=== PATIENT | female | born 1960 | race Caucasian/White ===

== ENCOUNTER 2019-08-21 19:27 | Observation (INO) | payer OTHER ==
[~2019-08-21] VITALS: Ht 165.1 cm; Wt 102.1 kg
[~2019-08-21 19:27] MED LIST: ASPI81EC PO; ATOR10 PO; Hair, Skin & N1 EACH PO; TURMERIC500 M2; Vitamin D2000 UNIT PO; ZOLP5 PO
[2019-08-21] MEDS ORDERED: DILTIAZEM 24HR120 M2 PO (19:36)
[2019-08-21 20:03] LABS: BASOPHILS ABSOLUTE AUTO 0.06 K/mm3 (0.00-0.23); BASOPHILS PERCENT AUTO 1 % (0-2); EOSINOPHILS ABSOLUTE AUTO 0.26 K/mm3 (0.00-0.68); EOSINOPHILS PERCENT AUTO 5 % (0-6); Hematocrit 36.9 % (33.0-51.0); Hemoglobin 12.3 g/dL (11.5-16.0); IMMATURE GRAN ABSOLUTE AUTO 0.01 K/mm3 (0.00-0.10); IMMATURE GRAN PERCENT AUTO 0 % (0-1); LYMPHOCYTES ABSOLUTE AUTO 2.57 K/mm3 (0.84-5.20); LYMPHOCYTES PERCENT AUTO 49 % (21-46); MONOCYTES ABSOLUTE AUTO 0.35 K/mm3 (0.16-1.47); MONOCYTES PERCENT AUTO 7 % (4-13); Mean Corpuscular HGB Conc 33.3 g/dL (31.5-36.5); Mean Corpuscular Volume 96 fL (80-100); Mean Platelet Volume 10.6 fL (9.1-12.4); NEUTROPHILS ABSOLUTE AUTO 1.98 K/mm3 (1.96-9.15); NEUTROPHILS PERCENT AUTO 38 % (41-73); Platelet Count 242 K/mm3 (150-400); RDW Coefficient Variation 12.4 % (11.7-14.2); RDW Standard Deviation 43.7 fL (35.1-46.3); Red Blood Cell Count 3.84 M/mm3 (3.80-5.20); White Blood Cell Count 5.23 K/mm3 (4.00-11.30)
[2019-08-21 20:25] LABS: Alanine Aminotransfer (ALT/SGP 31 U/L (12-78); Albumin, Blood 3.4 g/dL (3.4-5.0); Albumin/Globulin Ratio 0.9 (0.8-1.8); Alk Phos 120 U/L (50-136); Anion Gap 7 mmol/L (6-16); Aspartate Aminotrans (AST/SGOT 24 U/L (12-37); Bilirubin, Total 0.5 mg/dL (0.1-1.0); Blood Urea Nitrogen 24 mg/dL (8-24); CO2, Blood 27 mmol/L (21-32); Calcium, Blood 8.5 mg/dL (8.5-10.1); Chloride, Blood 105 mmol/L (98-108); Creatinine, Blood 0.92 mg/dL (0.40-1.00); Globulin, Blood 3.6 g/dL (2.2-4.0); Glomerular Filtration Rate >60 (60-); Glucose, Blood 101 mg/dL (70-99); Potassium, Blood 4.2 mmol/L (3.5-5.5); Sodium, Blood 139 mmol/L (136-145); Troponin I <0.015 ng/mL (0.000-0.040)
[2019-08-22 04:37] LABS: BASOPHILS ABSOLUTE AUTO 0.05 K/mm3 (0.00-0.23); BASOPHILS PERCENT AUTO 1 % (0-2); EOSINOPHILS PERCENT AUTO 2 % (0-6); Hematocrit 38.5 % (33.0-51.0); Hemoglobin 12.4 g/dL (11.5-16.0); IMMATURE GRAN ABSOLUTE AUTO 0.02 K/mm3 (0.00-0.10); IMMATURE GRAN PERCENT AUTO 0 % (0-1); LYMPHOCYTES ABSOLUTE AUTO 1.43 K/mm3 (0.84-5.20); LYMPHOCYTES PERCENT AUTO 27 % (21-46); MONOCYTES ABSOLUTE AUTO 0.15 K/mm3 (0.16-1.47); MONOCYTES PERCENT AUTO 3 % (4-13); Mean Corpuscular HGB 30.3 pg (26.0-34.0); Mean Corpuscular HGB Conc 32.2 g/dL (31.5-36.5); Mean Corpuscular Volume 94 fL (80-100); Mean Platelet Volume 10.4 fL (9.1-12.4); NEUTROPHILS PERCENT AUTO 67 % (41-73); Platelet Count 238 K/mm3 (150-400); RDW Coefficient Variation 12.3 % (11.7-14.2); RDW Standard Deviation 42.5 fL (35.1-46.3); Red Blood Cell Count 4.09 M/mm3 (3.80-5.20); White Blood Cell Count 5.25 K/mm3 (4.00-11.30)
[2019-08-22 05:00] LABS: Anion Gap 8 mmol/L (6-16); Blood Urea Nitrogen 18 mg/dL (8-24); Bun/Creatinine Ratio 16.5 (12.0-20.0); CO2, Blood 27 mmol/L (21-32); Calcium, Blood 8.6 mg/dL (8.5-10.1); Chloride, Blood 104 mmol/L (98-108); Creatinine, Blood 1.09 mg/dL (0.40-1.00); Glomerular Filtration Rate 54 (60-); Glucose, Blood 142 mg/dL (70-99); Potassium, Blood 4.1 mmol/L (3.5-5.5); Sodium, Blood 139 mmol/L (136-145); Troponin I <0.015 ng/mL (0.000-0.040)
--- NOTE | 2019-08-22 07:21 | NUR ---
ASSUMED CARE REPORT FROM ANIKET BECK
--- NOTE | 2019-08-22 07:53 | NUR ---
SHIFT SUMMARY PT IS A&O X4, VSS, ON RA, SHE DENIES CP/SOB SINCE ADMISSION TO THE FLOOR. PT WAS TAKEN TO CT FOR THE PE STUDY. SENIOR PAYROLL SPECIALIST IN THIS AM TO COMPLETE ECHO, PT IS VOIDING OFTEN DUE TO LASIX GIVEN IN ER. PT'S DAUGHTER IS GOING TO BRING IN HOME CPAP PER PT REQUEST. PT IS RESTING QUIETLY IN HER BED, CALL LIGHT IN REACH, REPORT GIVEN TO DAY RN.
--- NOTE | 2019-08-22 08:19 | NUR ---
DENIES CHEST PAIN. A&O, UP AD DEMARIO IN ROOM. VS STABLE.
--- NOTE | 2019-08-22 08:23 | NUR ---
ECHOCARDIOGRAM COMPLETED
--- NOTE | 2019-08-22 09:11 | NUR ---
MD VISIT DR. BYRNE IN
--- NOTE | 2019-08-22 17:08 | NUR ---
HR SLOWED WHEN PATIENT TRIED TO HAVE BM (40'S). PATIENT DIDN'T NOTICE (LIBRARY MANAGER ADVISED).
--- NOTE | 2019-08-22 19:18 | NUR ---
REPORT GIVEN TO ANIKET LANZA
--- NOTE | 2019-08-22 19:25 | NUR ---
DAUGHTER VISITING. REPORT TO ANIKET LANZA
--- NOTE | 2019-08-23 05:18 | NUR ---
SHIFT SUMMARY HAS RESTED WELL THIS SHIFT. PT VOICED CONCERN ABOUT BRADYCARDIA 30'S TO 50'S. ALSO STATED THAT SHE HAS A SORE THROAT AND A BURNING SENSATION IN HER MOUTH IF SHE HAS EATEN A PIZZA THAT IS TOO HOT. SHE STATES THAT THESE ADVERSE REACTIONS STARTED AFTER SHE BEGAN TAKING CARDIZEM ER. DENIES OBSERVANCE OF ANY OTHER ADVERSE REACTIONS. MARQUES HOSE PLACED PER PT REQUEST DUE TO MILD TO MODERATE EDEMA TO BLE. DENIES FURTHER NEEDS OR WANTS AT THIS TIME. SAFETY MEASURES IN PLACE. WILL GIVE HAND OFF TO ONCOMING SHIFT USING SBAR DURING BEDSIDE REPORT.
[2019-08-23] MEDS ORDERED: METO25 PO (08:51)
--- NOTE | 2019-08-23 10:04 | NUR ---
DISCHARGE SUMMARY PT REMAINED ALERT & ORIENTED. VSS, SB 40-60S ON TELE MONITOR; MD AWARE. PT DENIED ANY C/O CHEST PAIN/PRESSURE, SOB, PALPITATIONS, OR DIZZINESS/LIGHTHEADEDNESS. DISCHARGE EDUCATION COMPLETED W/ PT. DISCUSSED MED REC & FOLLOW UP INSTRUCTIONS; PT VERBALIZED UNDERSTANDING & STATED SHE WOULD FOLLOW UP INSTRUCTED & TAKE MEDS PRESCRIBED. DISCUSSED TO SEEK MEDICAL ATTENTION IF SHE EXPERIENCES CHEST PAIN/PRESSURE, SOB, WEIGHT GAIN, SWELLING, DIZZINESS, OR PALPITATIONS; PT VERBALIZED UNDERSTANDING. IV & TELE REMOVED. PT TO PICKUP NEW RX AT [facility] IN [place]. ALL PAPERWORK & BELONGINGS GIVEN TO PT. PT DISCHARGED HOME; DECLINED WHEELCHAIR; AMBUALTED OFF UNIT IN STABLE CONDITION.
== END 2019-08-23 10:05 | disposition home or self-care (01) ==
LOC: ER 19:27 → ERHOLD 19:28 → PCU 08-22 03:00
PROVIDERS: Emergency Medicine; Nurse Practitioner Acute Care; ADMIT Internal Medicine
DX: R07.89 Other chest pain (principal); R60.0 Localized edema; I10 Essential (primary) hypertension; I48.0 Paroxysmal atrial fibrillation; E78.5 Hyperlipidemia, unspecified; E66.9 Obesity, unspecified; Z91.09 Other allergy status, other than to drugs and biological substances; Z88.1 Allergy status to other antibiotic agents; Z88.6 Allergy status to analgesic agent; Z79.899 Other long term (current) drug therapy; Z68.37 Body mass index [BMI] 37.0-37.9, adult
CPT/HCPCS: 36415; 36416; 71046; 71260; 80048; 80053; 83880; 84443; 84484; 85025; 93005; 93010; 93306; 96361; 96372; 96374; 96375; 96376; 99285-25; A9270-GY; G0378; J1200; J1644; J1720; J1940; J2405; J7030; Q9967

== ENCOUNTER 2019-08-25 09:31 | Emergency (ER) | payer OTHER ==
[~2019-08-25] VITALS: Ht 162.6 cm; Wt 98.9 kg
[~2019-08-25 09:31] MED LIST changes: +DILTIAZEM 24HR120 M2 PO; +METO25 PO
[2019-08-25 10:32] LABS: Alanine Aminotransfer (ALT/SGP 53 U/L (12-78); Albumin, Blood 3.5 g/dL (3.4-5.0); Albumin/Globulin Ratio 0.9 (0.8-1.8); Alk Phos 115 U/L (50-136); Anion Gap 5 mmol/L (6-16); Aspartate Aminotrans (AST/SGOT 38 U/L (12-37); Bilirubin, Total 0.7 mg/dL (0.1-1.0); Blood Urea Nitrogen 25 mg/dL (8-24); Bun/Creatinine Ratio 28.5 (12.0-20.0); CO2, Blood 25 mmol/L (21-32); Calcium, Blood 8.9 mg/dL (8.5-10.1); Chloride, Blood 106 mmol/L (98-108); Creatinine, Blood 0.88 mg/dL (0.40-1.00); Globulin, Blood 3.8 g/dL (2.2-4.0); Glomerular Filtration Rate >60 (60-); Glucose, Blood 97 mg/dL (70-99); Potassium, Blood 4.6 mmol/L (3.5-5.5); Sodium, Blood 136 mmol/L (136-145); Total Protein, Blood 7.3 g/dL (6.4-8.2); Troponin I <0.015 ng/mL (0.000-0.040)
[2019-08-25 10:34] LABS: BASOPHILS ABSOLUTE AUTO 0.03 K/mm3 (0.00-0.23); BASOPHILS PERCENT AUTO 1 % (0-2); EOSINOPHILS ABSOLUTE AUTO 0.17 K/mm3 (0.00-0.68); EOSINOPHILS PERCENT AUTO 3 % (0-6); Hematocrit 37.9 % (33.0-51.0); Hemoglobin 12.4 g/dL (11.5-16.0); IMMATURE GRAN ABSOLUTE AUTO 0.03 K/mm3 (0.00-0.10); IMMATURE GRAN PERCENT AUTO 1 % (0-1); LYMPHOCYTES ABSOLUTE AUTO 2.23 K/mm3 (0.84-5.20); LYMPHOCYTES PERCENT AUTO 40 % (21-46); MONOCYTES ABSOLUTE AUTO 0.38 K/mm3 (0.16-1.47); MONOCYTES PERCENT AUTO 7 % (4-13); Mean Corpuscular HGB Conc 32.7 g/dL (31.5-36.5); Mean Corpuscular Volume 95 fL (80-100); Mean Platelet Volume 10.5 fL (9.1-12.4); NEUTROPHILS ABSOLUTE AUTO 2.71 K/mm3 (1.96-9.15); NEUTROPHILS PERCENT AUTO 49 % (41-73); Platelet Count 218 K/mm3 (150-400); RDW Coefficient Variation 12.3 % (11.7-14.2); White Blood Cell Count 5.55 K/mm3 (4.00-11.30)
== END 2019-08-25 14:30 | disposition home or self-care (01) ==
LOC: ER 09:31
PROVIDERS: Emergency Medicine
DX: R07.89 Other chest pain (principal); I10 Essential (primary) hypertension; R00.1 Bradycardia, unspecified; I48.91 Unspecified atrial fibrillation; Z88.1 Allergy status to other antibiotic agents; Z88.5 Allergy status to narcotic agent; Z91.013 Allergy to seafood; Z88.6 Allergy status to analgesic agent
CPT/HCPCS: 36415; 80053; 84484; 85025; 93005; 93010; 96374; 99285-25; A9270-GY; C9113

== ENCOUNTER 2020-03-27 07:21 | Day surgery (SDC) | payer OTHER ==
[~2020-03-27] VITALS: Ht 162.6 cm; Wt 99.1 kg
[~2020-03-27 07:21] MED LIST changes: +ACYC200 PO; +ASPIR 8181 M1 PO; +ATOR20 PO; +COLCHICINE0.6 MG PO; +EPIPEN0.3 MG/0.1 IM; +FURO20 PO; +LEVSOD25 PO; +Lisinopril-Hct1 EAC4 PO
[2020-03-27] MEDS ORDERED: AMLO5 PO (08:00)
[2020-03-27] MEDS ORDERED: Isosorbide Mono30 MG PO (12:13)
--- NOTE | 2020-03-27 12:15 | NUR ---
DR. RASHID AT BEDSIDE SPEAKING WITH PT AND PT'S DAUGHTER ABOUT RESULTS OF PROCEDURE.
--- NOTE | 2020-03-27 14:36 | NUR ---
DISCHARGE PATIENT REMAINED A&OX3 AND DENIED ANY PAIN DURING RECOVERY. NEW MEDICATION CALLED INTO [facility]. IV DC'D WITH CANULA IN TACT. PT ABLE TO DRESS SELF WITH LITTLE ASSISTACE FROM SISTER. PT UP TO RESTROOM WITH STEADY GAIT. RIGHT RADIAL SITE-TR BAND REMOVED-CLOTH DOT AND WHITE BOARD IN PLACE-CDI, NO HEMATOMA NOTED. DISCHARGE PAPERWORK GONE OVER WITH PATIENT. PATIENT VERBALLY STATED THE UNDERSTANDING OF THE DISCHARGE EDUCATION AND DENIED ANY QUESTIONS AT THIS TIME. PT WHEELED OUT BY THIS NURSE.
== END 2020-03-27 14:58 | disposition home or self-care (01) ==
LOC: MHTC 07:21
PROC: B2111ZZ Fluoroscopy of Multiple Coronary Arteries using Low Osmolar Contrast (ICD-10-PCS; principal; 2020-03-27)
PROC: 4A023N7 Measurement of Cardiac Sampling and Pressure, Left Heart, Percutaneous Approach (ICD-10-PCS; principal; 2020-03-27)
DX: R07.9 Chest pain, unspecified (principal); I25.10 Atherosclerotic heart disease of native coronary artery without angina pectoris; R00.1 Bradycardia, unspecified; R06.00 Dyspnea, unspecified; I47.1 Supraventricular tachycardia; I10 Essential (primary) hypertension; I51.9 Heart disease, unspecified; G47.33 Obstructive sleep apnea (adult) (pediatric); I48.0 Paroxysmal atrial fibrillation; E66.9 Obesity, unspecified; Z68.37 Body mass index [BMI] 37.0-37.9, adult; Z99.89 Dependence on other enabling machines and devices; Z88.6 Allergy status to analgesic agent; Z88.8 Allergy status to other drugs, medicaments and biological substances; Z91.041 Radiographic dye allergy status; Z91.018 Allergy to other foods; Z91.013 Allergy to seafood; Z79.82 Long term (current) use of aspirin; Z79.899 Other long term (current) drug therapy
CPT/HCPCS: 76937; 85347; 99152; 99153; C1769; C1894; J1200; J1644; J1720; J2250; J3010; J7030; J7050; Q9967

== ENCOUNTER 2020-04-02 20:09 | Emergency (ER) | payer OTHER ==
[~2020-04-02] VITALS: Ht 165.1 cm; Wt 96.6 kg
[~2020-04-02 20:09] MED LIST changes: +AMLO5 PO; +Isosorbide Mono30 MG PO
[2020-04-02 20:34] LABS: BASOPHILS ABSOLUTE AUTO 0.03 K/mm3 (0.00-0.23); BASOPHILS PERCENT AUTO 0 % (0-2); EOSINOPHILS ABSOLUTE AUTO 0.27 K/mm3 (0.00-0.68); EOSINOPHILS PERCENT AUTO 4 % (0-6); Hematocrit 41.1 % (33.0-51.0); Hemoglobin 13.3 g/dL (11.5-16.0); IMMATURE GRAN ABSOLUTE AUTO 0.03 K/mm3 (0.00-0.10); IMMATURE GRAN PERCENT AUTO 0 % (0-1); LYMPHOCYTES ABSOLUTE AUTO 2.93 K/mm3 (0.84-5.20); LYMPHOCYTES PERCENT AUTO 42 % (21-46); MONOCYTES ABSOLUTE AUTO 0.47 K/mm3 (0.16-1.47); MONOCYTES PERCENT AUTO 7 % (4-13); Mean Corpuscular HGB 30.3 pg (26.0-34.0); Mean Corpuscular HGB Conc 32.4 g/dL (31.5-36.5); Mean Corpuscular Volume 94 fL (80-100); Mean Platelet Volume 10.4 fL (9.1-12.4); NEUTROPHILS PERCENT AUTO 47 % (41-73); Platelet Count 276 K/mm3 (150-400); RDW Coefficient Variation 12.4 % (11.7-14.2); RDW Standard Deviation 43.1 fL (35.1-46.3); Red Blood Cell Count 4.39 M/mm3 (3.80-5.20); White Blood Cell Count 7.03 K/mm3 (4.00-11.30)
[2020-04-02 21:17] LABS: Alanine Aminotransfer (ALT/SGP 29 U/L (12-78); Albumin, Blood 3.9 g/dL (3.4-5.0); Alk Phos 138 U/L (50-136); Anion Gap 4 mmol/L (6-16); Aspartate Aminotrans (AST/SGOT 15 U/L (12-37); Bilirubin, Total 1.4 mg/dL (0.1-1.0); Blood Urea Nitrogen 13 mg/dL (8-24); Bun/Creatinine Ratio 18.4 (12.0-20.0); CO2, Blood 30 mmol/L (21-32); Calcium, Blood 9.3 mg/dL (8.5-10.1); Chloride, Blood 107 mmol/L (98-108); Creatinine, Blood 0.71 mg/dL (0.40-1.00); Globulin, Blood 3.8 g/dL (2.2-4.0); Glomerular Filtration Rate >60 (60-); Glucose, Blood 104 mg/dL (70-99); Potassium, Blood 3.7 mmol/L (3.5-5.5); Sodium, Blood 141 mmol/L (136-145); Total Protein, Blood 7.7 g/dL (6.4-8.2); Troponin I <0.015 ng/mL (0.000-0.040)
== END 2020-04-02 23:08 | disposition home or self-care (01) ==
LOC: ER 20:09
PROVIDERS: Emergency Medicine
DX: I20.9 Angina pectoris, unspecified (principal); I10 Essential (primary) hypertension; I48.91 Unspecified atrial fibrillation; Z79.82 Long term (current) use of aspirin; Z79.899 Other long term (current) drug therapy
CPT/HCPCS: 36415; 71046; 80053; 84484; 85025; 93005; 93010; 99285-25

== ENCOUNTER 2020-04-22 09:04 | Day surgery (SDC) | payer OTHER ==
--- NOTE | 2020-04-22 10:20 | NUR ---
IV ACCESS ATTEMPTS X6 TOTAL. History, Chart, Medications and Allergies reviewed before start of procedure.Patient confirms NPO status and agrees with scheduled surgery. PT A&O X4
--- NOTE | 2020-04-22 11:03 | NUR ---
Patient up to Ambulate independently. Gait steady. Discharge instructions reviewed with patient. Patient verbalizes understanding. Copy given to patient to take home. KIAN RASHID PT OKAY TO DISCHARGE. VSS/A&O X4/NO ACUTE CHANGES. NO SIGNS OF ADVERSE REACTION TO PROCEDURE.
== END 2020-04-22 23:13 | disposition home or self-care (01) ==
LOC: ORD 09:04 → CT 09:04 → ORD 09:30 → CT 10:00 → ORD 23:13
DX: I25.10 Atherosclerotic heart disease of native coronary artery without angina pectoris (principal); E66.9 Obesity, unspecified; I10 Essential (primary) hypertension; G47.33 Obstructive sleep apnea (adult) (pediatric); I48.0 Paroxysmal atrial fibrillation; Z88.6 Allergy status to analgesic agent; Z91.041 Radiographic dye allergy status; Z88.5 Allergy status to narcotic agent; Z91.013 Allergy to seafood; Z79.899 Other long term (current) drug therapy; Z79.82 Long term (current) use of aspirin; Z68.37 Body mass index [BMI] 37.0-37.9, adult
CPT/HCPCS: 75574; Q9967

== ENCOUNTER 2020-12-09 12:46 | Emergency (ER) | payer OTHER ==
[~2020-12-09] VITALS: Ht 165.1 cm; Wt 99.8 kg
[2020-12-09 13:17] LABS: BASOPHILS ABSOLUTE AUTO 0.03 K/mm3 (0.00-0.23); BASOPHILS PERCENT AUTO 1 % (0-2); EOSINOPHILS ABSOLUTE AUTO 0.31 K/mm3 (0.00-0.68); EOSINOPHILS PERCENT AUTO 5 % (0-6); Hematocrit 37.1 % (33.0-51.0); Hemoglobin 12.7 g/dL (11.5-16.0); IMMATURE GRAN ABSOLUTE AUTO 0.03 K/mm3 (0.00-0.10); IMMATURE GRAN PERCENT AUTO 1 % (0-1); LYMPHOCYTES ABSOLUTE AUTO 2.15 K/mm3 (0.84-5.20); LYMPHOCYTES PERCENT AUTO 35 % (21-46); MONOCYTES ABSOLUTE AUTO 0.42 K/mm3 (0.16-1.47); MONOCYTES PERCENT AUTO 7 % (4-13); Mean Corpuscular HGB 30.9 pg (26.0-34.0); Mean Corpuscular HGB Conc 34.2 g/dL (31.5-36.5); Mean Corpuscular Volume 90 fL (80-100); Mean Platelet Volume 10.5 fL (9.1-12.4); NEUTROPHILS ABSOLUTE AUTO 3.28 K/mm3 (1.96-9.15); NEUTROPHILS PERCENT AUTO 53 % (41-73); Platelet Count 301 K/mm3 (150-400); RDW Coefficient Variation 12.5 % (11.7-14.2); Red Blood Cell Count 4.11 M/mm3 (3.80-5.20); White Blood Cell Count 6.22 K/mm3 (4.00-11.30)
[2020-12-09 13:43] LABS: Alanine Aminotransfer (ALT/SGP 39 U/L (12-78); Albumin, Blood 3.6 g/dL (3.4-5.0); Alk Phos 158 U/L (50-136); Anion Gap 2 mmol/L (6-16); Aspartate Aminotrans (AST/SGOT 24 U/L (12-37); Bilirubin, Total 0.9 mg/dL (0.1-1.0); Blood Urea Nitrogen 18 mg/dL (8-24); Bun/Creatinine Ratio 21.7 (12.0-20.0); CO2, Blood 32 mmol/L (21-32); Calcium, Blood 8.9 mg/dL (8.5-10.1); Chloride, Blood 104 mmol/L (98-108); Creatinine, Blood 0.83 mg/dL (0.40-1.00); Globulin, Blood 3.6 g/dL (2.2-4.0); Glomerular Filtration Rate >60 (60-); Glucose, Blood 101 mg/dL (70-99); Potassium, Blood 3.7 mmol/L (3.5-5.5); Sodium, Blood 138 mmol/L (136-145); Total Protein, Blood 7.2 g/dL (6.4-8.2); Troponin I <0.015 ng/mL (0.000-0.040)
[2020-12-09] MEDS ORDERED: ATOR10 PO (16:12)
[2020-12-09] MEDS ORDERED: HYDCHL25 PO (16:12)
[2020-12-09] MEDS ORDERED: AMLO10 PO (16:12)
== END 2020-12-09 18:04 | disposition home or self-care (01) ==
LOC: ER 12:46
PROVIDERS: Physician Assistant
DX: R07.9 Chest pain, unspecified (principal); I10 Essential (primary) hypertension; I48.91 Unspecified atrial fibrillation; Z79.82 Long term (current) use of aspirin; Z79.899 Other long term (current) drug therapy; Z88.6 Allergy status to analgesic agent; Z88.5 Allergy status to narcotic agent; Z91.041 Radiographic dye allergy status; Z91.013 Allergy to seafood
CPT/HCPCS: 36415; 71046; 80053; 83690; 83880; 84484; 85025; 93005; 93010; 99285-25

== ENCOUNTER → 2021-09-27 | Outpatient (CLI) | payer OTHER ==
[~2021-09-27] MED LIST changes: +AMLO10 PO; +HYDCHL25 PO
== END | disposition home or self-care (01) ==
LOC: LAB 11:50 → LAB SHORT 11:50
DX: L02.32 Furuncle of buttock (principal)
CPT/HCPCS: 87070; 87205

== ENCOUNTER 2022-08-21 09:00 | Day surgery (SDC) | payer OTHER ==
[~2022-08-21] VITALS: Ht 165.1 cm; Wt 86.4 kg
[2022-08-21] MEDS ORDERED: Tambocor100 MG (09:44)
[2022-08-21] MEDS ORDERED: FAMO10 (09:44)
[2022-08-21] MEDS ORDERED: LACT (09:45)
[2022-08-21] MEDS ORDERED: OMEP20ER (09:45)
== END 2022-08-21 11:23 | disposition home or self-care (01) ==
LOC: ORSCSDS 09:00
PROVIDERS: Surgery
PROC: 0DBK8ZX Excision of Ascending Colon, Via Natural or Artificial Opening Endoscopic, Diagnostic (ICD-10-PCS; principal; 2022-08-21 10:15)
DX: Z12.11 Encounter for screening for malignant neoplasm of colon (principal); Z86.010 Personal history of colon polyps; D12.2 Benign neoplasm of ascending colon; K57.30 Diverticulosis of large intestine without perforation or abscess without bleeding; G47.33 Obstructive sleep apnea (adult) (pediatric); I10 Essential (primary) hypertension; I48.0 Paroxysmal atrial fibrillation; Z79.01 Long term (current) use of anticoagulants; Z79.899 Other long term (current) drug therapy; Z98.84 Bariatric surgery status
CPT/HCPCS: 88305; J2704; J7120

== ENCOUNTER → 2023-01-01 | Outpatient (CLI) | payer OTHER ==
[~2023-01-01] MED LIST changes: +FAMO10; +LACT; +OMEP20ER; +Tambocor100 MG
== END | disposition home or self-care (01) ==
LOC: LAB 18:26 → LAB SHORT 18:26
DX: N39.0 Urinary tract infection, site not specified (principal)
CPT/HCPCS: 87077; 87086; 87147; 87186

== ENCOUNTER → 2023-04-07 | Outpatient (CLI) | payer OTHER | LOC: LAB 15:00 → LAB SHORT 15:00 | DX: N39.0 Urinary tract infection, site not specified (principal) | CPT/HCPCS: 87077; 87086; 87186 ==

== ENCOUNTER 2023-05-01 11:32 | Inpatient (IN) | payer OTHER ==
[~2023-05-01] VITALS: Ht 162.6 cm; Wt 73.9 kg
[~2023-05-01 11:32] MED LIST changes: +ELIQUIS5 M2 PO; +EZET10 PO; -FAMO10; +FAMO10 PO; +MULVITA; -Tambocor100 MG; +Tambocor100 MG PO
[2023-05-01 12:03] LABS: BASOPHILS ABSOLUTE AUTO 0.03 K/mm3 (0.00-0.23); BASOPHILS PERCENT AUTO 0 % (0-2); EOSINOPHILS ABSOLUTE AUTO 0.12 K/mm3 (0.00-0.68); EOSINOPHILS PERCENT AUTO 2 % (0-6); Hematocrit 36.4 % (33.0-51.0); Hemoglobin 12.3 g/dL (11.5-16.0); IMMATURE GRAN ABSOLUTE AUTO 0.02 K/mm3 (0.00-0.10); IMMATURE GRAN PERCENT AUTO 0 % (0-1); LYMPHOCYTES ABSOLUTE AUTO 1.71 K/mm3 (0.84-5.20); LYMPHOCYTES PERCENT AUTO 22 % (21-46); MONOCYTES ABSOLUTE AUTO 0.55 K/mm3 (0.16-1.47); MONOCYTES PERCENT AUTO 7 % (4-13); Mean Corpuscular HGB Conc 33.8 g/dL (31.5-36.5); Mean Corpuscular Volume 95 fL (80-100); Mean Platelet Volume 11.4 fL (9.1-12.4); NEUTROPHILS ABSOLUTE AUTO 5.37 K/mm3 (1.96-9.15); NEUTROPHILS PERCENT AUTO 69 % (41-73); Platelet Count 290 K/mm3 (150-400); RDW Coefficient Variation 12.6 % (11.7-14.2); RDW Standard Deviation 43.5 fL (35.1-46.3); Red Blood Cell Count 3.84 M/mm3 (3.80-5.20)
[2023-05-01 12:24] LABS: Albumin, Blood 2.9 g/dL (3.4-5.0); Albumin/Globulin Ratio 0.7 (0.8-1.8); Bilirubin, Total 4.2 mg/dL (0.1-1.0); Bun/Creatinine Ratio 16.5 (12.0-20.0); Calcium, Blood 9.1 mg/dL (8.5-10.1); Creatinine, Blood 0.61 mg/dL (0.40-1.00); Globulin, Blood 4.3 g/dL (2.2-4.0); Potassium, Blood 3.8 mmol/L (3.5-5.5); Total Protein, Blood 7.2 g/dL (6.4-8.2)
[2023-05-01 14:30] LABS: Bilirubin, Direct 2.7 mg/dL (0.0-0.3); Bilirubin, Indirect 1.5 mg/dL (0.1-0.7)
[2023-05-01 15:02] VITALS: BP 106/54
[2023-05-01 17:59] LABS: Blood, Urine Neg (Neg); Color, Urine Yellow (P-Yellow); Glucose Qualitative, Urine Neg (Neg); Ketones, Urine Neg (Neg); Leukocyte Esterase, Urine Neg (Neg); Nitrite, Urine Neg (Neg); Protein, Urine 1+ (Neg); Urobilinogen, Urine 2+ (Normal)
--- NOTE | 2023-05-01 18:14 | NUR ---
PT ARRIVED TO THE ROOM FROM ER AT APPROXIMATELY 1445. PAIN MANAGED AT TIME OF ARRIVAL. DR. GUNTER NOTIFIED OF ARRIVAL TO ROOM AND ROUNDED ON PT SHORTLY AFTER. SPOKE WITH DR. GUNTER REGARDING BASELINE LOW HR IN THE 40S WHILE AWAKE AND THAT IT DIPS DOWN TO THE 30'S WHILE SHE IS SLEEPING. PT REPORTS SHE HAS SEEN A PROPERTY PRESERVATION SPECIALIST AND IT WAS DETERMINED THAT SHE DOES NOT NEED A PACEMAKER AT THIS TIME. PER DR. GUNTER OK TO LEAVE PT OFF TELE.
[2023-05-01 18:17] LABS: Bilirubin, Urine 1+ (Neg)
[2023-05-01 18:25] LABS: Appearance, Urine Clear (Clear)
--- NOTE | 2023-05-01 18:28 | NUR ---
SHIFT SUMMARY NO CHANGES TO REPORT SINCE PT ARRIVED TO THE UNIT. PT HAS NOT REQUIRED PAIN MEDICATION. SHE IS TOLERATING A CLEAR LIQUID DIET. FRIENDS AND S/O AT THE BEDSIDE FOR SUPPORT. CALL LIGHT WITHIN REACH.
[2023-05-01 19:37] VITALS: BP 97/60
--- NOTE | 2023-05-01 19:40 | NUR ---
PT AND SIGNIFICANT OTHER EDUCATED THAT VISITING HOURS ARE FROM 7AM TO 7PM. PT'S S/O VERBALIZED THAT HE DOES NOT PLAN TO LEAVE TONIGHT. PT AND S/O WERE GIVEN AN ADDITIONAL 15 MINUTES TO SAY GOODBYE AND VISITING HOURS WERE REINFORCED. HE AGAIN STATED HE DOES NOT PLAN TO GO HOME TONIGHT.
[2023-05-02 03:05] VITALS: BP 96/59
[2023-05-02 05:18] LABS: BASOPHILS ABSOLUTE AUTO 0.02 K/mm3 (0.00-0.23); BASOPHILS PERCENT AUTO 1 % (0-2); EOSINOPHILS ABSOLUTE AUTO 0.18 K/mm3 (0.00-0.68); EOSINOPHILS PERCENT AUTO 5 % (0-6); Hematocrit 29.1 % (33.0-51.0); Hemoglobin 9.9 g/dL (11.5-16.0); IMMATURE GRAN ABSOLUTE AUTO 0.01 K/mm3 (0.00-0.10); IMMATURE GRAN PERCENT AUTO 0 % (0-1); LYMPHOCYTES ABSOLUTE AUTO 1.64 K/mm3 (0.84-5.20); LYMPHOCYTES PERCENT AUTO 41 % (21-46); MONOCYTES ABSOLUTE AUTO 0.32 K/mm3 (0.16-1.47); MONOCYTES PERCENT AUTO 8 % (4-13); Mean Corpuscular Volume 94 fL (80-100); Mean Platelet Volume 11.3 fL (9.1-12.4); NEUTROPHILS ABSOLUTE AUTO 1.87 K/mm3 (1.96-9.15); NEUTROPHILS PERCENT AUTO 46 % (41-73); Platelet Count 203 K/mm3 (150-400); RDW Coefficient Variation 12.7 % (11.7-14.2); RDW Standard Deviation 43.8 fL (35.1-46.3); Red Blood Cell Count 3.09 M/mm3 (3.80-5.20); White Blood Cell Count 4.04 K/mm3 (4.00-11.30)
[2023-05-02 05:43] LABS: Bun/Creatinine Ratio 13.3 (12.0-20.0); Calcium, Blood 8.3 mg/dL (8.5-10.1); Creatinine, Blood 0.6 mg/dL (0.40-1.00)
[2023-05-02 07:34] VITALS: BP 113/71
--- NOTE | 2023-05-02 08:09 | NUR ---
SHIFT SUMMARY NOC. PT A/O X4. PT PAINFUL X1 FOR EPIGASTRIC PAIN. PT DENIES N/V AND IS VOIDING URINE. PT HAD ASYMPTOMATIC BRADICARDIA EPISODES AND DENIES CP AND SOB. PT INDEPENDENT IN THE ROOM. PT'S BOYFRIEND LEFT AT APPROX 1900. PT REPORTED THAT SHE FEELS SAFE AT HOME BOYFRIEND DID NOT WANT TO LEAVE. PT STATES THAT BOYFRIEND IS WORRIED ABOUT PT BEING SICK. PT RESTED WITH EYES CLOSED AND CALL LIGHT IN REACH.
[2023-05-02 08:59] LABS: Bilirubin, Direct 2.5 mg/dL (0.0-0.3); Bilirubin, Indirect 0.9 mg/dL (0.1-0.7); Bilirubin, Total 3.4 mg/dL (0.1-1.0)
[2023-05-02 16:54] VITALS: BP 135/78
--- NOTE | 2023-05-02 18:06 | NUR ---
SHIFT SUMMARY PT A&OX4, VSS/RA, CARMEN PO CLD, VOIDING, AMB INDEPENDENTLY, PAIN MANAGED WITH TYLENOL, IV SL/ABX PER EMAR. PLAN FOR NPO MN FOR SURGERY WEDNESDAY. WILL REPORT TO ONCOMING NOC RN.
[2023-05-02 21:00] VITALS: BP 98/62
[2023-05-03] VITALS (21 sets, daily range): BP systolic 87–139; BP diastolic 43–87
--- NOTE | 2023-05-03 07:30 | NUR ---
SHIFT SUMMARY NOC. PT A/O X4. PT TO GO TO SURGERY TODAY FOR CHOLECYSTECTOMY. PT HAS BEEN NPO SINCE 0000. PT HAD SURGICAL WIPE DOWN AT APPROX 0400. PT INDEPENDENT IN THE ROOM. WORE HER CPAP ALL NIGHT WITH GOOD O2 SATS. PT HAS BEEN BRADYCARDIC BUT HAS BEEN ASYMPTOMATIC. PT HAD BREIF PERIOD OF LIGHTHEADEDNESS X1 DURING THE NIGHT WHICH RESOLVED QUICKLY. PT MEDICATED FOR PAIN X1. PT VOIDING URINE. PT RESTED WITH EYES CLOSED AND CALL LIGHT IN REACH.
--- NOTE | 2023-05-03 13:05 | NUR ---
PRE-OP NOTE PT A&OX4, BREATHING RA, CALM, NO COMPLAINTS. Ambulatory in Day Surgery Patient confirms NPO status and agrees with scheduled surgery. Pre-Op teaching done. Pt verbalizes understanding.
--- NOTE | 2023-05-03 15:27 | NUR ---
OR UPDATE PATIENT WAS TRANSPORTED TO DAY SURGERY AT 1030 THIS AM. STILL CURRENTLY IN OR. AWAITING CALL FOR REPORT.
--- NOTE | 2023-05-03 17:10 | NUR ---
UPDATE PATIENT RETURNED VIA [employer], POST OP VITALS TAKEN, IV ABX INFUSING. PATIENT IS AOX4, ON 2L NC SATS ABOVE 94%. REPORTS SOME NAUSEA. CARRIE DRAIN IS COMPRESSED AND DRAINING SS OUT PUT. X3 LAP SITES TRISTEN CLOSED WITH WOUND GLUE, C/D/I. PATIENT STATES SHE "JUST WANTS TO SLEEP". CALL LIGHT IN REACH. VSS.
--- NOTE | 2023-05-03 17:48 | NUR ---
SHIFT SUMMARY NO ACUTE EVENTS SINCE LAST NOTE. PATIENT IS CURRENTLY EATING FULL LIQ DIET AND TOLERATING WELL. VSS.
[2023-05-04 03:32] VITALS: BP 112/70
--- NOTE | 2023-05-04 06:41 | NUR ---
SHIFT SUMMARY NOC. PT A/O X4. PT HAS 3 LAP SITES ON ANTERIOR ABD PLUS A CARRIE DRAIN. DRAIN PRODUCING PINK SEROUSANG DRAINAGE. STERI STRIPS FOR LAP SITES C/D/I. PT MEDICATED FOR PAIN WITH RELIEF OF SX. PT REPORTED INTERMITTENT CHEST TWINGE AFTER RECEIVING DILAUDID. VITALS STABLE WHEN CHECKED PT DENIED PALPITATIONS, OR PRESSURE. T/C PLACED TO HOSPITALIST AND DECLINED NEED FOR EKG OR TELEMETRY. PT REPORTED RESOLUTION OF EVENT SHORTLY AFTER. PT HAD 1 EPISODE OF NAUSEA MEDICATED WITH RELIEF. PT RESTED WITH CPAP AND CONT BIOX IN PLACE. SAT DROPPED TO 88% ONE TIME BUT QUICKLY RETURNED. PT RESTED WITH EYES CLOSED AND CALL LIGHT IN REACH.
[2023-05-04 07:48] VITALS: BP 121/62
[2023-05-04] MEDS ORDERED: AMLO5 PO (07:58)
[2023-05-04] MEDS ORDERED: Isosorbide Mono30 MG PO (07:59)
[2023-05-04 08:56] VITALS: BP 119/69
--- NOTE | 2023-05-04 11:11 | NUR ---
UPDATE PATIENT NOTED TO HAVE TACHYCARDIA 120S-130S ON PULSE OX, AND WAS "FEELING HEART POUNDING". CALL MADE TO DR. QUINONES, ORDER FOR EKG AND FLECAINIDE. EGK SHOWS A-FIB W/ RVR, ORDER FOR TELEMETRY PLACED. TELE CONFIRMED WITH ANTWON GOODMAN, PATIENT IS CURRENTLY IN SINUS TYRA OF 58. DENIES CHEST PAIN AND SOB. VITALS REMAIN STABLE. CALL LIGHT IN REACH.
[2023-05-04] MEDS ORDERED: HYDR1TAB94 PO (14:39)
[2023-05-04 15:04] VITALS: BP 115/70
--- NOTE | 2023-05-04 16:21 | NUR ---
DISCHARGE PATIENT DISCHARGED HOME VIA PRIVATE CAR, ALL INSTRUCTIONS GIVEN AND SIGNED UNDERSTANDING RECORDED. IV TAKEN OUT WITH NO COMPLICAITONS. ALL BELONGINGS PACKED AND ACCOUNTED FOR.
== END 2023-05-04 16:49 | disposition home or self-care (01) | DRG 419 ==
LOC: ER 11:32 → SURS 11:33
PROVIDERS: Physician Assistant; Surgery; ADMIT Internal Medicine
PROC: BF10YZZ Fluoroscopy of Bile Ducts using Other Contrast (ICD-10-PCS; 2023-05-03)
PROC: 0FT44ZZ Resection of Gallbladder, Percutaneous Endoscopic Approach (ICD-10-PCS; principal; 2023-05-03 12:30)
DX: K80.00 Calculus of gallbladder with acute cholecystitis without obstruction (principal); E03.9 Hypothyroidism, unspecified; G47.00 Insomnia, unspecified; I10 Essential (primary) hypertension; K21.9 Gastro-esophageal reflux disease without esophagitis; I48.0 Paroxysmal atrial fibrillation; I95.9 Hypotension, unspecified; I20.9 Angina pectoris, unspecified; G47.33 Obstructive sleep apnea (adult) (pediatric); Z79.890 Hormone replacement therapy; Z88.1 Allergy status to other antibiotic agents; Z88.6 Allergy status to analgesic agent; Z88.8 Allergy status to other drugs, medicaments and biological substances; Z79.01 Long term (current) use of anticoagulants; Z98.84 Bariatric surgery status
CPT/HCPCS: 36415; 74177; 74181; 80048; 80053; 82247; 82248; 83690; 85025; 88304; 94660; 94762; 96361; 96365; 96374; 96375; 99285-25; A9270; G0378; J1100; J1170; J1200; J1885; J2405; J2543; J2704; J2765; J3010; J7030; J7050; J7120; Q9967

== ENCOUNTER → 2023-05-13 | Outpatient (CLI) | payer OTHER ==
[~2023-05-13] MED LIST changes: +HYDR1TAB94 PO
== END ==
LOC: LAB 15:14 → LAB SHORT 15:14
DX: R35.0 Frequency of micturition (principal)
CPT/HCPCS: 87086

== ENCOUNTER 2024-12-18 18:44 | Emergency (ER) | payer OTHER ==
[~2024-12-18] VITALS: Ht 165.1 cm; Wt 80.7 kg
[~2024-12-18 18:44] MED LIST changes: +BACTRIM DS TAB1 EAC6 PO; +CEPH500 PO; +Mupirocin22 GM TOP
[2024-12-18 20:55] LABS: BASOPHILS ABSOLUTE AUTO 0.03 K/mm3 (0.00-0.23); BASOPHILS PERCENT AUTO 0 % (0-2); EOSINOPHILS ABSOLUTE AUTO 0.12 K/mm3 (0.00-0.68); EOSINOPHILS PERCENT AUTO 2 % (0-6); Hematocrit 38.6 % (33.0-51.0); Hemoglobin 12.9 g/dL (11.5-16.0); IMMATURE GRAN ABSOLUTE AUTO 0.02 K/mm3 (0.00-0.10); IMMATURE GRAN PERCENT AUTO 0 % (0-1); LYMPHOCYTES ABSOLUTE AUTO 2.42 K/mm3 (0.84-5.20); LYMPHOCYTES PERCENT AUTO 33 % (21-46); MONOCYTES ABSOLUTE AUTO 0.72 K/mm3 (0.16-1.47); MONOCYTES PERCENT AUTO 10 % (4-13); Mean Corpuscular HGB Conc 33.4 g/dL (31.5-36.5); Mean Corpuscular Volume 94 fL (80-100); NEUTROPHILS ABSOLUTE AUTO 4.11 K/mm3 (1.96-9.15); NEUTROPHILS PERCENT AUTO 55 % (41-73); NRBC ABSOLUTE 0.00 K/mm3 (0.00-0.02); NRBC Auto 0.0 /100 WBC (0.0-0.2); Platelet Count 249 K/mm3 (150-400); RDW Coefficient Variation 12.8 % (11.7-14.2); RDW Standard Deviation 44.1 fL (35.1-46.3)
[2024-12-18] MEDS ORDERED: NS 1,000 ML IV SCH (20:55)
[2024-12-18 21:27] LABS: Alanine Aminotransfer (ALT/SGP 38.0 U/L (12-78); Albumin, Blood 3.5 g/dL (3.4-5.0); Albumin/Globulin Ratio 0.9 (0.8-1.8); Anion Gap 6.0 mmol/L (3-11); Aspartate Aminotrans (AST/SGOT 22.0 U/L (12-37); Bilirubin, Total 1.1 mg/dL (0.1-1.0); Blood Urea Nitrogen 18.0 mg/dL (8-24); CO2, Blood 28.0 mmol/L (21-32); Calcium, Blood 9.3 mg/dL (8.5-10.1); Chloride, Blood 106.0 mmol/L (98-108); Creatinine, Blood 0.86 mg/dL (0.40-1.00); Globulin, Blood 3.9 g/dL (2.2-4.0); Glucose, Blood 94.0 mg/dL (70-99); Magnesium, Blood 2.4 mg/dL (1.6-2.4); Potassium, Blood 4.0 mmol/L (3.5-5.5); Sodium, Blood 136.0 mmol/L (136-145); Total Protein, Blood 7.4 g/dL (6.4-8.2)
[2024-12-18 22:20] LABS: Source, Urine Clean Catch
[2024-12-18 22:23] LABS: Bilirubin, Urine Neg (Neg); Glucose Qualitative, Urine Neg (Neg); Ketones, Urine Neg (Neg); Leukocyte Esterase, Urine 1+ (Neg); Protein, Urine Neg (Neg); Specific Gravity, Urine 1.020 (1.003-1.022); Urobilinogen, Urine NORM (Normal)
[2024-12-18 22:25] LABS: Color, Urine Yellow (P-Yellow)
[2024-12-18 22:34] LABS: Red Blood Cells, Urine Not Seen /hpf (0-2); White Blood Cells, Urine 0-2 /hpf (0-5)
[2024-12-18] MEDS ORDERED: DICY20 PO (23:12)
[2024-12-18 23:21] VITALS: BP 138/75
== END 2024-12-18 23:21 | disposition home or self-care (01) ==
LOC: ER 18:44
PROVIDERS: Student in an Organized Health Care Education/Training Program
DX: K59.00 Constipation, unspecified (principal); M54.50 Low back pain, unspecified; G89.29 Other chronic pain; I10 Essential (primary) hypertension; I48.91 Unspecified atrial fibrillation; Z88.6 Allergy status to analgesic agent; Z91.018 Allergy to other foods; Z88.1 Allergy status to other antibiotic agents; Z88.8 Allergy status to other drugs, medicaments and biological substances; Z91.041 Radiographic dye allergy status; Z91.013 Allergy to seafood; Z79.01 Long term (current) use of anticoagulants; Z79.890 Hormone replacement therapy; Z79.899 Other long term (current) drug therapy
CPT/HCPCS: 74176; 80053; 81001; 82550; 83605; 83690; 83735; 84484; 85025; 93005; 93010; 96372; 99284-25; J0500; J7030

== ENCOUNTER 2025-02-07 20:10 | Emergency (ER) | payer OTHER ==
[~2025-02-07] VITALS: Ht 162.6 cm; Wt 82.5 kg
[~2025-02-07 20:10] MED LIST changes: +DICY20 PO
[2025-02-07 20:29] VITALS: BP 165/100
== END 2025-02-07 23:53 | disposition home or self-care (01) ==
LOC: ER 20:10
DX: S01.01XA Laceration without foreign body of scalp, initial encounter (principal); I48.91 Unspecified atrial fibrillation; I10 Essential (primary) hypertension; I25.10 Atherosclerotic heart disease of native coronary artery without angina pectoris; E03.9 Hypothyroidism, unspecified; K21.9 Gastro-esophageal reflux disease without esophagitis; Z23 Encounter for immunization; Z88.6 Allergy status to analgesic agent; Z88.1 Allergy status to other antibiotic agents; Z88.8 Allergy status to other drugs, medicaments and biological substances; Z91.041 Radiographic dye allergy status; Z91.018 Allergy to other foods; Z91.013 Allergy to seafood; Z79.01 Long term (current) use of anticoagulants; Z79.890 Hormone replacement therapy; Z79.899 Other long term (current) drug therapy; W06.XXXA Fall from bed, initial encounter
CPT/HCPCS: 12002; 70450; 72070; 72125; 90471; 90715; 99284-25